=== PATIENT | female | born 1965 | race Caucasian/White ===

== ENCOUNTER 2023-03-06 17:03 | Outpatient (CLI) | payer OTHER, SELFPAY | END 2023-03-06 17:04 | disposition home or self-care (01) | LOC: ANHLAB 17:10 | DX: E04.2 Nontoxic multinodular goiter (principal) | CPT/HCPCS: 36415; 84443 ==

== ENCOUNTER 2023-12-11 09:22 | Emergency (ER) | payer OTHER, SELFPAY ==
--- NOTE | ~2023-12-11 | CT_ITS ---
CT of the Abdomen and Pelvis: Indication: Abdominal pain Technique: 2.5 mm axial scans were obtained through the abdomen and pelvis following intravenous adm inistration of 100 cc of Omnipaque 350. Dose reduction technique was used on this scan by utilizing a utomated exposure control and iterative reconstruction technique. The dose-length product (DLP) was 2 59.68 mGy-cm. Findings: Scans through the lung bases are unremarkable. The liver, spleen, pancreas, adrenals and kidneys are within normal limits. Multiple gallstones are p resent. No evidence of aortic aneurysm. No lymphadenopathy. Possible 1.8 cm densely calcified aneury sm in the region of the pancreas (axial image 55). No bowel obstruction or bowel wall thickening. There is no evidence to suggest acute appendicitis. Images through the pelvis were performed. Urinary bladder unremarkable. No adnexal mass seen. No asci james. Impression: Cholelithiasis. 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 Thi s may arise from the splenic artery, though this is somewhat indeterminate. Reviewed, dictated and finalized at location M. Impression: Cholelithiasis. 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 This may arise from the splenic artery, though this is somew hat indeterminate.
[2023-12-11 09:27] VITALS: BP 147/86; PULSE 93; RESP 16; TEMP 36.9; O2SAT 99
[2023-12-11 09:37] LABS: Basophils Absolute Auto 0.1 K/mm3 (0.0-0.1); Basophils Percent Auto 0.6 % (0.2-1.2); Eosinophils Absolute Auto 0.2 K/mm3 (0-0.3); Hematocrit 39.3 % (37.0-47.0); Hemoglobin 12.9 g/dL (12.0-15.0); Immature Granulocyte Absolute 0.06 K/mm3 (0.00-0.031); Immature Granulocyte Percent A 0.7 % (0-0.5); Lymphocytes Absolute Auto 1.95 K/mm3 (0.9-3.2); Lymphocytes Percent Auto 23.9 % (18.3-44.2); Mean Corpuscular HGB Conc 32.8 g/dl (32-36); Mean Corpuscular Hemoglobin 31.3 pg (26-34); Mean Corpuscular Volume 95.4 fl (80-100); Mean Platelet Volume 9.1 fl (7.4-10.4); Monocytes Absolute Auto 0.6 K/mm3 (0.1-0.6); Monocytes Percent Auto 7.5 % (2.6-8.5); Neutrophils Absolute Auto 5.3 K/mm3 (1.3-6.7); Neutrophils Percent Auto 65.3 % (45.5-73.1); Platelet Count Result 293 k/mm3 (150-375); Red Blood Count 4.12 M/mm3 (4.2-5.4); Red Cell Distribution Width 12.1 % (11.5-14.5); White Blood Count 8.2 K/mm3 (4.5-10.0)
[2023-12-11] MEDS: PANTOPRAZOLE SODIUM IV 40 MG VIAL IV PUSH (09:44)
[2023-12-11 09:59] LABS: Alanine Aminotransferase 37 U/L (6-35); Albumin Level 4.3 g/dL (3.5-5.1); Alkaline Phosphatase 130 U/L (38-126); Anion Gap 7 mmol/L (4-12); Aspartate Amino Transferase 31 U/L (14-36); Bilirubin,Total 0.2 mg/dL (0.2-1.3); Blood Urea Nitrogen 14 mg/dL (7-17); Calcium 9.1 mg/dL (8.4-10.2); Carbon Dioxide 35 mmol/L (22-30); Chloride 97 mmol/L (98-107); Estimated CRCL calculation 70 ml/min; Estimated Glomerular Filt Rate > 60; Glucose 95 mg/dL (65-110); Lipase 100 U/L (23-300); Sodium 139 mmol/L (137-145)
[2023-12-11 10:09] LABS: Add Urine Microscopic? NO; Appearance Urine Clear (Clear); Bilirubin Urine Negative (Negative); Blood Urine Negative (Negative); Color Urine Yellow (Yellow); Glucose Urine UA Negative (Negative); Ketones Urine Negative (Negative); Leukocyte Esterase Ur Negative LEU/UL (Negative); Nitrate Urine Negative (Negative); Protein Urine Negative (Negative); Urobilinogen Urine 0.2 mg/dL (<2.0); pH Urine >=9.0 (5.0-9.0)
[2023-12-11] MEDS: MAG HYDROX/AL HYDROX/SIMETH 30 ML UDC PO (10:37)
--- NOTE | 2023-12-11 10:48 | ED.ABDPAIN ---
HPI - Abdominal Pain General Chief Complaint: Abdominal Pain Stated Complaint: abd pain Time Seen by Provider: 12/11/23 09:29 History of Present Illness HPI narrative: History of GERD, recent COVID a week ago, for over last few days has been having some left upper quadrant pain and bloating. Related Data Allergies Allergy/AdvReac Type Severity Reaction Status Date / Time No Known Allergies Allergy Verified 12/11/23 09:29 Review of Systems Review of Systems: All systems reviewed & are unremarkable except as noted in HPI and below Exam Narrative: EXAMINATION OF ORGAN SYSTEMS/BODY AREAS: Constitutional: Vital signs per nursing GENERAL:[No acute distress, non-toxic appearing.] HEAD: Normal with no signs of head trauma. EYES: EOMI, conjunctiva normal ENT: Hearing grossly intact LUNGS: Nonlabored breathing. HEART: [Regular rate and rhythm] ABD: [Soft], [minimal tenderness to palpation] left upper quadrant EXT: Normal range of motion SKIN: [No rashes or lesions.] NEURO: [Alert and oriented x 3. No gross focal sensory or strength deficits.] PSYCH: Normal affect Course Vital Signs Vital signs: Vital Signs Temperature 98.4 F 12/11/23 09:27 Pulse Rate 93 12/11/23 09:27 Respiratory Rate 16 12/11/23 09:27 Blood Pressure 147/86 H 12/11/23 09:27 Pulse Oximetry 99 12/11/23 09:27 Oxygen Delivery Room Air 12/11/23 09:27 Temperature 98.4 F 12/11/23 09:27 Pulse Rate 93 12/11/23 09:27 Respiratory Rate 16 12/11/23 09:27 Blood Pressure 147/86 H 12/11/23 09:27 Pulse Oximetry 99 12/11/23 09:27 Oxygen Delivery Room Air 12/11/23 09:27 MDM - Abdominal Pain MDM Narrative Medical decision making narrative: Patient here with abdominal bloating and LUQ pain; h/o GERD. Very well appearing here in NAD, abd soft/nontender. She would like a CT scan done. 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 This is discussed with pt and family; I called [facility] where the [facility] specialist recommended emergent transfer for possible repair. Dr. Catalan ER accepts patient for ER to ER transfer. Patient is wishing to be transferred there by private vehicle. I did let her know that it would be easier/preferable, possibly safer with ambulance but I cannot stop her from whenever choice she decided; overall she has normal vital signs here, I suspect her symptoms are not related to the aneurysm as she is now asymptomatic after being treated for GERD and I suspect this is likely an incidental finding on the CT, so overall this does not seem like too dangerous of a choice. Patient did refuse ambulance transfer Lab Data 12/11/23 09:32 12/11/23 09:32 Labs: Lab Results 12/11/23 12/11/23 Range/Units 09:32 09:59 WBC 8.2 (4.5-10.0) K/mm3 RBC 4.12 L (4.2-5.4) M/mm3 Hgb 12.9 (12.0-15.0) g/dL Hct 39.3 (37.0-47.0) % MCV 95.4 (80-100) fl MCH 31.3 (26-34) pg MCHC 32.8 (32-36) g/dl RDW 12.1 (11.5-14.5) % Plt Count 293 (150-375) k/mm3 MPV 9.1 (7.4-10.4) fl Immature Gran % (Auto) 0.7 H (0-0.5) % Neut % (Auto) 65.3 (45.5-73.1) % Lymph % (Auto) 23.9 (18.3-44.2) % [place] % (Auto) 7.5 (2.6-8.5) % Eos % (Auto) 2.0 (0-4.4) % Baso % (Auto) 0.6 (0.2-1.2) % Lymph # (Auto) 1.95 (0.9-3.2) K/mm3 [place] # (Auto) 0.6 (0.1-0.6) K/mm3 Eos # (Auto) 0.2 (0-0.3) K/mm3 Baso # (Auto) 0.1 (0.0-0.1) K/mm3 Abs Immat Gran (auto) 0.06 H (0.00-0.031) K/mm3 Absolute Neuts (auto) 5.3 (1.3-6.7) K/mm3 Absolute Nucleated RBC 0.000 (0.0-0.012) K/mm3 Nucleated RBC % 0.0 (0.0-0.2) % Sodium 139 (137-145) mmol/L Potassium 4.0 (3.4-5.0) mmol/L Chloride 97 L (98-107) mmol/L Carbon Dioxide 35 H (22-30) mmol/L Anion Gap 7 (4-12) mmol/L BUN 14 (7-17) mg/dL Creatinine 0.60 L (0.7-1.0) mg/dL Estim Creat Clear Calc 70 ml/min Estimated GFR > 60 (59 - ) Glucose 95 (65-110) mg/dL Calcium 9
[2023-12-11 12:49] VITALS: BP 128/85; PULSE 95; RESP 20; TEMP 36.7; O2SAT 95
[2023-12-11 12:50] VITALS: BP 128/85; PULSE 95; RESP 20; TEMP 36.7; O2SAT 100
== END 2023-12-11 13:04 | disposition short-term general hospital (02) ==
PROVIDERS: Emergency Provider Emergency Medicine
DX: I72.8 Aneurysm of other specified arteries (principal); R10.12 Left upper quadrant pain; K21.9 Gastro-esophageal reflux disease without esophagitis; Z86.16 Personal history of COVID-19; K80.20 Calculus of gallbladder without cholecystitis without obstruction
CPT/HCPCS: 36415; 74177; 80053; 81003; 83690; 85025; 96374; 99285; A9270; J2470; Q9967

== ENCOUNTER 2024-09-29 17:29 | Emergency (ER) | payer OTHER, SELFPAY ==
[2024-09-29 17:41] VITALS: BP 127/84; PULSE 89; RESP 16; TEMP 36.9; O2SAT 99
--- NOTE | 2024-09-29 17:48 | ED_ITS ---
HPI - General Adult General Chief complaint: Urogenital-Female Stated complaint: SWOLLEN GLANDS/EARACHE/BURNING URINATION Time Seen by Provider: 09/29/24 17:48 Source: patient, RN notes reviewed and old records reviewed Mode of arrival: ambulatory Limitations: no limitations History of Present Illness HPI narrative: 59-year-old female presents with 2 complaints. States that she has had a left itchy ear for over 2 weeks. States that she feels like her lymph node is also swollen on the left side of her neck. Reports she normally has a lot of frequency with urination but reports burning. Patient denies any fevers. Related Data Home Medications ?Medication ?Instructions ?Recorded ?Confirmed ?Last Taken ?Type cholecalciferol (vitamin D3) 125 09/29/24 Unknown History mcg (5,000 unit) capsule conjugated estrogens 0.625 mg/gram 09/29/24 Unknown History vaginal cream (Premarin) Allergies Allergy/AdvReac Type Severity Reaction Status Date / Time No Known Allergies Allergy Verified 09/29/24 17:44 Review of Systems Review of Systems: All systems reviewed & are unremarkable except as noted in HPI and below Constitutional: Constitutional: Reports no additional constitutional complaints ENT: Reports as per HPI Cardiovascular: Cardiovascular: Reports no additional cardiovascular complaints, Denies chest pain and Denies dyspnea Respiratory: Respiratory: Reports no additional respiratory complaints, Denies chest congestion, Denies cough and Denies dyspnea Genitourinary: Genitourinary: Reports as per HPI Musculoskeletal: Musculoskeletal: Reports no additional musculoskeletal complaints Integumentary/Breasts: Skin/Breast: Reports system reviewed and no additional complaints, except as docu PMFSH Surgical History Surgical History (Updated 09/29/24 @ 21:18 by Letty Gallagher, SALES AND MERCH[employer]ISING REPRESENTATIVE) Hx of cholecystectomy 02/2024 History of appendectomy 1969 Comments At the time of my signature, I reviewed and agree with the nursing past medical, surgical, social, and family history. There is no relevant family history pertinent to the patient complaint. Exam Const: General: cooperative, healthy appearing, comfortable, no acute distress, well developed, alert and well nourished Nutritional Appearance: we ll nourished Orientation/consciousness: patient oriented x3 Limitations: no limitations HENMT: Head: normal to inspection Ears: hearing grossly normal bilaterally, external ears normal, TM's normal bilaterally, mastoids normal, no periauricular adenopathy and Abnormal EAC present erythema (Mild) on the left and edema Face/Nose/Sinus: Normal external nose present and Normal nares present Throat: posterior oropharynx normal, uvula midline and no uvular edema Eyes: General: appearance normal, both eyes and all related structures Alignment and Position: alignment normal Neck: Neck: normal visual inspection, full ROM, no lymphadenopathy and no meningeal signs Chest: Chest palpation & inspection: normal inspection of the chest Resp: Effort & Inspection: normal respiratory effort and able to speak in complete sentences Auscultation: clear to auscultation bilaterally, no crackles, no rales, no rhonchi and no wheezes Cardio: Rate: regular rate Skin: General skin exam: normal color and no rashes or lesions noted Neuro: General: patient oriented x3, gait normal, moves all extremities and no meningeal signs Cognition (Neuro): normal cognition Speech: normal speech Gait exam (Neuro): Normal gait present Extrem: General: normal to inspection, full ROM, capillary refill normal and normal gait Psych: Appearance: grossly normal and well kempt Mental Status: mental status grossly normal Speech and movement: Normal speech and movement present and Clear speech present Affect: normal affect Attitude: cooperative Course Course Level of Care: Express Care Visit Vital Signs Vital signs: Vital Signs Temperature 98.5 F 09/29/24 17:41 Pulse Rate 89 09/29/24 17:41 Respiratory Rate 16 09/29/24 17:41 Blood Pressure 127/84 09/29/24 17:41 Pulse Oximetry 99 09/29/24 17:41 Temperature 98.5 F 09/29/24 17:41 Pulse Rate 89 09/29/24 17:41 Respiratory Rate 16 09/29/24 17:41 Blood Pressure 127/84 09/29/24 17:41 Pulse Oximetry 99 09/29/24 17:41 Reviewed Medical Decision Making MDM Narrative Medical decision making narrative: Patient sitting comfortably in exam room. Nontoxic, vitals stable. Patient in no acute distress Patient presents with 2 complaints itchy left ear for 2 weeks with swollen lymph nodes. Has mild inflammation to the lower ear canal most likely from Q-tips Patient also concerns for burning with urination which urine dip shows no signs of infection. Patient appropriate for outpatient treatment with close follow-up Discharge instructions reviewed with patient, as well as provided in writing per nursing staff. The instructions also include specific and strict return/GO TO THE ER as well as f/u information. All questions have been answered, and the patient deny any further questions with discharge and discharge plan. Some parts of this dictation were generated by voice recognition software and may contain typographical and/or grammatical inaccuracies. Medical Records Medical records reviewed: Yes I reviewed the external patient's medical records. Vital Signs Vital Signs: Vital Signs Temperature 98.5 F 09/29/24 17:41 Pulse Rate 89 09/29/24 17:41 Respiratory Rate 16 09/29/24 17:41 Blood Pressure 127/84 09/29/24 17:41 Pulse Oximetry 99 09/29/24 17:41 Temperature 98.5 F 09/29/24 17:41 Pulse Rate 89 09/29/24 17:41 Respiratory Rate 16 09/29/24 17:41 Blood Pressure 127/84 09/29/24 17:41 Pulse Oximetry 99 09/29/24 17:41 Reviewed Lab Data Lab results reviewed: Yes I reviewed the patient's lab results. Labs: Lab Results 09/29/24 Range/Units 18:02 POC Urine Color Light/pale POC Urine Clarity Clear POC Urine pH 5.5 POC Ur Specif [place] 1.010 POC Urine Protein Negative (Negative) POC Ur Glucose (UA) Negative (Negative) POC Urine Ketones Negative (Negative) POC Urine Blood Negative (Negative) POC Urine Nitrite Negative (Negative) POC Urine Bilirubin Negative (Negative) POC Urine Urobilinogen 0.2 POC U Leukocyte Esteras Negative (Negative) Reviewed Critical Care Time Critical Care Time Critical Care Time: No Discharge Plan Discharge Clinical Impression: Earache on left, H/O urinary frequency Patient Disposition: Home Condition: Stable Instructions: Earache (ED), Urinary Urgency and Frequency (DC) Additional Instructions: Take Motrin alternating with Tylenol as needed for pain Follow-up with primary care provider Use ear drops as prescribed For new or worsening symptoms go directly to the ER Patient Language: Nigerien Prescriptions: New [id number] 3.5-10,000-1 mg/mL-unit/mL-% drops,suspension 4 drp LEFT EAR TID 7 Days Qty: 10 0RF No Action Premarin 0.625 mg/gram cream cholecalciferol (vitamin D3) 125 mcg (5,000 unit) capsule Follow-up/Referrals: [employer], [Primary Care Provider] - Stand Alone Forms: Work/School Release IP Time of Disposition: 18:02
[2024-09-29 18:05] LABS: EDUAAPPEAR Clear; EDUABILI Negative (Negative); EDUABLOOD Negative (Negative); EDUACOLOR1 Light/Pale; EDUAGLUCOSE Negative (Negative); EDUAKETONE Negative (Negative); EDUALEUKO Negative (Negative); EDUANITRATE Negative (Negative); EDUAPH 5.5; EDUAPROTEIN Negative (Negative); EDUAUROBILI 0.2
== END 2024-09-29 18:05 | disposition home or self-care (01) ==
PROVIDERS: Emergency Provider Nurse Practitioner
DX: H92.02 Otalgia, left ear (principal); R35.0 Frequency of micturition
CPT/HCPCS: 81003; 99213; G0463